=== PATIENT | male | born 1995 | race Caucasian/White ===

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

== ENCOUNTER 2021-07-05 15:10 | Emergency (ER) | payer BC ==
[2021-07-05 16:44] VITALS: TEMP 98.6
[2021-07-05] MEDS ORDERED: HALOPERIDOL LACTATE 5 MG/ML 1 ML VIAL IVP STA (18:01)
[2021-07-05] MEDS ORDERED: diphenhydrAMINE 50 MG/ML 1 ML VIAL IVP STA (18:01)
[2021-07-05] MEDS ORDERED: FAMOTIDINE 20 MG/2 ML VIAL IV STA (18:02)
[2021-07-05] MEDS ORDERED: DEXTROSE 5%-0.9% NACL 1,000 ML IV SCH (18:15)
[2021-07-05 18:38] LABS: Basophils % (A) 0 %; Eosinophils % (A) 0 %; Lymphocytes % (A) 26 %; MCH 30.5 pg (25.0-35.0); MCHC 34.7 g/dL (31.0-37.0); MCV 87.9 fL (80.0-100.0); Mean Platelet Volume 7.6; Monocytes # (A) 0.8 k/uL (0-1.0); Monocytes % (A) 7 %; Neutrophils # (A) 7.3 k/uL (1.3-7.7); Neutrophils % (A) 64 %; Platelet Count 258 k/uL (150-450); RBC 5.58 m/uL (4.30-5.90); RDW 11.6 % (11.5-15.5); WBC 11.5 k/uL (3.8-10.6)
[2021-07-05 18:49] LABS: Appearance,Urine Cloudy (Clear); Bilirubin,Urine Negative (Negative); Blood,Urine Large (Negative); Color,Urine Yellow; Glucose,Urine (UA) Negative (Negative); Ketones,Urine 3+ (Negative); Leukocyte Esterase,Urine Negative (Negative); Mucus,Urine Many /hpf; Nitrite,Urine Negative (Negative); PH, Urine 6.5 (5.0-8.0); Protein,Urine 4+ (Negative); RBC,Urine 9 /hpf (0-5); Specific Gravity,Urine 1.042 (1.001-1.035); Squamous Epithelial Cell,Urine 3 /hpf (0-4); Urobilinogen,Urine <2.0 mg/dL (<2.0); WBC,Urine 3 /hpf (0-5)
[2021-07-05 18:50] LABS: ALT 175 U/L (4-49); African American GFR (CKD) >90 (>60 ml/min/1.73 sqM); Albumin 5.2 g/dL (3.5-5.0); Alkaline Phosphatase 70 U/L (38-126); Amylase 77 U/L (30-110); Anion Gap 14 mmol/L; Blood Urea Nitrogen 20 mg/dL (9-20); Calcium 9.9 mg/dL (8.4-10.2); Carbon Dioxide 25 mmol/L (22-30); Chloride 100 mmol/L (98-107); Glucose 94 mg/dL (74-99); Lipase 111 U/L (23-300); Non-African American GFR(CKD) >90 (>60 ml/min/1.73 sqM); Potassium 3.9 mmol/L (3.5-5.1); Sodium 139 mmol/L (137-145); Total Bilirubin 1.4 mg/dL (0.2-1.3); Total Protein 8.4 g/dL (6.3-8.2)
[2021-07-05 19:06] LABS: AST 933 U/L (17-59)
--- NOTE | 2021-07-05 19:55 | ED ---
General Adult HPI - General Chief complaint: Nausea/Vomiting/Diarrhea Stated complaint: abd pain Time Seen by Provider: 07/05/21 17:42 Source: patient, RN notes reviewed, old records reviewed Mode of arrival: ambulatory Limitations: no limitations - History of Present Illness Initial comments: Patient patient is a 25-year-old male with past medical history remarkable for marijuana hyperemesis syndrome, as well as an extensive hepatobiliary workup due to chronic nausea and vomiting presents emergency Department complaining of a four-day history of nausea and vomiting. He was diagnosed with hyperemesis syndrome on Sunday. Has been having multiple episodes of nonbilious, bloody emesis since. States she can only tolerate small amounts of water. Began feeling worse again today. Does endorse some mild epigastric discomfort in addition to nausea and vomiting. States he has had extensive workups previously, including a HIDA scan to evaluate for obstruction which have been negative in the past. He presents today over concern for worsening nausea or vomiting. He states he has not smoked marijuana since Sunday. Denies any fevers, chills, sick contacts, chest pain, shortness of breath.Evaluated the patient was placed in a room. - Related Data Home Medications Medication Instructions Recorded Confirmed Omeprazole Magnesium [PriLOSEC OTC] 20 mg PO DAILY PRN 07/05/21 07/05/21 Previous Rx's Medication Instructions Recorded Ondansetron Odt [Zofran Odt] 4 mg PO Q8HR PRN 3 Days #9 tab 07/05/21 Allergies Allergy/AdvReac Type Severity Reaction Status Date / Time No Known Allergies Allergy Verified 07/05/21 20:03 Review of Systems ROS Statement: Those systems with pertinent positive or pertinent negative responses have been documented in the HPI. Review of Systems: CONST: Denies fever EYES: Denies blurry vision ENT: Denies nasal congestion C/V: Denies Chest pain RESP: Denies shortness of breath GI: Endorses abdominal pain. : Denies dysuria SKIN: Denies rash. MSK: Denies joint pain. NEURO: Denies headache ROS Other: All systems not noted in ROS Statement are negative. Past Medical History Past Medical History: Asthma History of Any Multi-Drug Resistant Organisms: None Reported Past Surgical History: No Surgical Hx Reported Additional Past Surgical History / Comment(s): facial reconstruction surgery Past Psychological History: No Psychological Hx Reported Smoking Status: Never smoker Past Alcohol Use History: None Reported Past Drug Use History: None Reported General Exam - General Exam Comments Initial Comments: General: Appears in no acute distress. HEAD: Normal with no signs of head trauma. EYES: PERRLA, EOMI, conjunctiva normal, no discharge. ENT: Hearing grossly intact, normal oropharynx. RESPIRATORY: Clear breath sounds bilaterally. No wheezes, rales, or rhonchi. C/V: Regular rate and rhythm. S1 and S2 auscultated, no edema, peripheral pulses 2+ and intact throughout ABD: Abdomen is soft, nondistended. Patient does have mild tenderness to palpation in the epigastric region. No rebound tenderness, and no peritoneal signs, no guarding. EXT: Normal range of motion, no obvious deformity SKIN: No rashes or lesions observed on exposed skin. NEURO: Alert and oriented 4. Limitations: no limitations Course Vital Signs 07/05/21 07/05/21 16:38 20:08 Temperature 98.6 F Pulse Rate 98 64 Respiratory 18 16 Rate Blood Pressure 131/90 124/68 O2 Sat by Pulse 99 97 Oximetry Medical Decision Making - Medical Decision Making Based on the patient's presentation and physical exam, I'm concerned for acute intra-abdominal process for his current symptoms. Is likely marijuana hyperemesis syndrome. We will obtain abdominal laboratory studies, as well as a screening EKG. He was in agreement this plan. I do not think that require imaging at this time. He'll be symptomatically treated with IV Haldol, Benadryl, famotidine 1 L fluid bolus. Patient was in agreement this plan. Patient's EKG shows no signs of acute ischemia. Laboratory studies are remarkable for mild leukocytosis of 11.5. Patient does have an elevated bilirubin of 1.4, as well as elevated AST and ALT respectively of 933 and 175. Alk phos is normal. Urinalysis is remarkable for 4+ protein as well as 3+ ketones and large amount of blood. No signs of acute infection. On reevaluation, patient is feeling improved. I would like to admit him to the hospital for further evaluation over concern for possible hepatitis. He declines. He would like to go home as he feels better. I informed him this would be AGAINST MEDICAL ADVICE and he was in agreement. The patient was apprised of the potential risks of leaving the hospital AGAINST MEDICAL ADVICE, including serious complications, permanent disability, and . At the time of my interview the patient, the patient was alert, oriented, and capable. Patient signed AMA form, which was witnessed and signed by nursing staff, and placed in patient's chart. I urged the patient to return to the hospital as soon as possible to complete evaluation and treatment. Patient was given his prescriptions and discharged AGAINST MEDICAL ADVICE. I advised him to return to the emergency department with any worsening symptoms and advised that he seek medical care due to concern for his liver function. - Lab Data Result diagrams: 07/05/21 18:24 07/05/21 18:24 Lab Results 07/05/21 07/05/21 07/05/21 Range/Units 18:24 18:24 18:43 WBC 11.5 H (3.8-10.6) k/uL RBC 5.58 (4.30-5.90) m/uL Hgb 17.0 (13.0-17.5) gm/dL Hct 49.0 (39.0-53.0) % MCV 87.9 (80.0-100.0) fL MCH 30.5 (25.0-35.0) pg MCHC 34.7 (31.0-37.0) g/dL RDW 11.6 (11.5-15.5) % Plt Count 258 (150-450) k/uL MPV 7.6 Neutrophils % 64 % Lymphocytes % 26 % Monocytes % 7 % Eosinophils % 0 % Basophils % 0 % Neutrophils # 7.3 (1.3-7.7) k/uL Lymphocytes # 3.0 (1.0-4.8) k/uL Monocytes # 0.8 (0-1.0) k/uL Eosinophils # 0.0 (0-0.7) k/uL Basophils # 0.0 (0-0.2) k/uL Sodium 139 (137-145) mmol/L Potassium 3.9 (3.5-5.1) mmol/L Chloride 100 (98-107) mmol/L Carbon Dioxide 25 (22-30) mmol/L Anion Gap 14 mmol/L BUN 20 (9-20) mg/dL Creatinine 0.82 (0.66-1.25) mg/dL Est GFR (CKD-EPI)AfAm >90 (>60 ml/min/1.73 sqM) Est GFR (CKD-EPI)NonAf >90 (>60 ml/min/1.73 sqM) Glucose 94 (74-99) mg/dL Calcium 9.9 (8.4-10.2) mg/dL Total Bilirubin 1.4 H (0.2-1.3) mg/dL AST 933 H (17-59) U/L ALT 175 H (4-49) U/L Alkaline Phosphatase 70 (38-126) U/L Total Protein 8.4 H (6.3-8.2) g/dL Albumin 5.2 H (3.5-5.0) g/dL Amylase 77 (30-110) U/L Lipase 111 (23-300) U/L Urine Color Yellow Urine Appearance Cloudy (Clear) Urine pH 6.5 (5.0-8.0) Ur Specific [place] 1.042 H (1.001-1.035) Urine Protein 4+ H (Negative) Urine Glucose (UA) Negative (Negative) Urine Ketones 3+ H (Negative) Urine Blood Large H (Negative) Urine Nitrite Negative (Negative) Urine Bilirubin Negative (Negative) Urine Urobilinogen <2.0 (<2.0) mg/dL Ur Leukocyte Esterase Negative (Negative) Urine RBC 9 H (0-5) /hpf Urine WBC 3 (0-5) /hpf Ur Squamous Epith Cells 3 (0-4) /hpf Urine Mucus Many H (None) /hpf - EKG Data -: EKG Interpreted by Me EKG Comments: 12-lead Electrocardiogram Interpretation Note EKG was reviewed and interpreted by myself. 12-lead ECG performed at 1910 is interpreted by me as revealing normal sinus rhythm at a rate of 78 beats per minute. Right axis deviation. GA Intervals 156 seconds, QRS duration is 100 ms, QTc is 503 ms.. There were no ST or T wave abnormalities to suggest myocardial ischemia or injury. R wave progression across the precordium was satisfactory. By my interpretation this EKG is non-diagnostic for acute ischemia. There is baseline artifact in the anterior precordial leads which makes interpretation difficult. Disposition Clinical Impression: Nausea and vomiting, Hepatitis, Dehydration, Left against medical advice, Hematuria Disposition: Left Against Medical Advice Instructions (If sedation given, give patient instructions): Acute Nausea and Vomiting (ED) Additional Instructions: concern for hepatitis due to elevated liver enzymes. Please return and seek care if worsening symptoms and follow up with your PCP. Prescriptions: Ondansetron Odt [Zofran Odt] 4 mg PO Q8HR PRN 3 Days #9 tab PRN Reason: Nausea Is patient prescribed a controlled substance at d/c from ED?: No Referrals: Nonstaff,Physician [Primary Care Provider] - 1-2 days Sushma Whitmore MD [STAFF PHYSICIAN] - 1-2 days
[2021-07-05 20:10] VITALS: BP 124/68; PULSE 64; RESP 16
== END 2021-07-05 20:09 | disposition left against medical advice (07) ==
LOC: EC 15:10
DX: K75.9 Inflammatory liver disease, unspecified (principal); E86.0 Dehydration; R31.9 Hematuria, unspecified; J45.909 Unspecified asthma, uncomplicated
CPT/HCPCS: 36415; 93005; 80053; 82150; 83690; 85025; 81001; 99284; 96374; 96375 ×2; J1200; J1630

== ENCOUNTER 2021-07-06 15:54 | Emergency (ER) | payer BC ==
[2021-07-06 16:12] VITALS: RESP 18
[2021-07-06] MEDS ORDERED: SODIUM CHLORIDE 0.9% 1,000 ML IV STA (17:11)
[2021-07-06 17:21] LABS: ALT 172 U/L (4-49); African American GFR (CKD) >90 (>60 ml/min/1.73 sqM); Alkaline Phosphatase 68 U/L (38-126); Anion Gap 16 mmol/L; Blood Urea Nitrogen 17 mg/dL (9-20); Calcium 9.6 mg/dL (8.4-10.2); Carbon Dioxide 21 mmol/L (22-30); Chloride 100 mmol/L (98-107); Glucose 100 mg/dL (74-99); Magnesium 2.1 mg/dL (1.6-2.3); Non-African American GFR(CKD) >90 (>60 ml/min/1.73 sqM); Potassium 3.4 mmol/L (3.5-5.1); Sodium 137 mmol/L (137-145); Total Bilirubin 1.4 mg/dL (0.2-1.3); Total Protein 7.9 g/dL (6.3-8.2)
[2021-07-06 17:25] LABS: Basophils % (A) 0 %; Eosinophils % (A) 0 %; HCT 47.3 % (39.0-53.0); HGB 16.7 gm/dL (13.0-17.5); Lymphocytes # (A) 1.4 k/uL (1.0-4.8); Lymphocytes % (A) 16 %; MCH 31.2 pg (25.0-35.0); MCHC 35.3 g/dL (31.0-37.0); MCV 88.2 fL (80.0-100.0); Mean Platelet Volume 7.5; Monocytes # (A) 0.5 k/uL (0-1.0); Monocytes % (A) 5 %; Neutrophils # (A) 6.9 k/uL (1.3-7.7); Neutrophils % (A) 76 %; Platelet Count 279 k/uL (150-450); RBC 5.36 m/uL (4.30-5.90); RDW 12.1 % (11.5-15.5); WBC 9.1 k/uL (3.8-10.6)
[2021-07-06 17:28] LABS: INR 1.1 (<1.2); Partial Thromboplastin Time 23.9 sec (22.0-30.0); Prothrombin Time 11.1 sec (9.0-12.0)
[2021-07-06 17:30] LABS: AST 791 U/L (17-59)
[2021-07-06] MEDS ORDERED: ONDANSETRON 4 MG/2 ML VIAL IVP STA (17:47)
--- NOTE | 2021-07-06 17:49 | ED ---
General Adult HPI - General Chief complaint: Nausea/Vomiting/Diarrhea Stated complaint: revisit - nausea, vomiting Time Seen by Provider: 07/06/21 17:05 Source: patient, RN notes reviewed Mode of arrival: ambulatory Limitations: no limitations - History of Present Illness Initial comments: 25-year-old male with a past medical history of asthma, hyperemesis syndrome presents to the emergency room for a chief complaint of nausea vomiting. Patient reports that he has had nausea and vomiting since Sunday. He has been seen at multiple facilities and had haldol multiple times since then. Patient had high liver enzymes yesterday and left AGAINST MEDICAL ADVICE. However his symptoms came back and now he feels worse again. Patient states his symptoms are due to smoking marijuana. States he has had an endoscopy about a year ago as well showing a stomach ulcer. States his gallbladder was evaluated and was found to be normal. Patient states he gets these episodes every couple months.Patient has no other complaints at this time including shortness of breath, chest pain, headache, or visual changes. - Related Data Home Medications Medication Instructions Recorded Confirmed Omeprazole Magnesium [PriLOSEC OTC] 20 mg PO DAILY PRN 07/05/21 07/06/21 Previous Rx's Medication Instructions Recorded Ondansetron Odt [Zofran Odt] 4 mg PO Q8HR PRN 3 Days #9 tab 07/05/21 Ondansetron [Zofran ODT] 4 mg PO Q8HR PRN #15 tab 07/06/21 Allergies Allergy/AdvReac Type Severity Reaction Status Date / Time No Known Allergies Allergy Verified 07/06/21 18:21 Review of Systems ROS Statement: Those systems with pertinent positive or pertinent negative responses have been documented in the HPI. ROS Other: All systems not noted in ROS Statement are negative. Past Medical History Past Medical History: Asthma History of Any Multi-Drug Resistant Organisms: None Reported Past Surgical History: No Surgical Hx Reported Additional Past Surgical History / Comment(s): facial reconstruction surgery Past Psychological History: No Psychological Hx Reported Smoking Status: Never smoker Past Alcohol Use History: None Reported Past Drug Use History: None Reported General Exam Limitations: no limitations General appearance: alert, in no apparent distress Head exam: Present: atraumatic Eye exam: Present: normal appearance, PERRL, EOMI. Absent: scleral icterus, conjunctival injection ENT exam: Present: normal exam, mucous membranes moist Neck exam: Present: normal inspection, full ROM. Absent: tenderness Respiratory exam: Present: normal lung sounds bilaterally. Absent: respiratory distress, wheezes Cardiovascular Exam: Present: regular rate, normal rhythm GI/Abdominal exam: Present: soft, normal bowel sounds. Absent: distended, tenderness Neurological exam: Present: alert Course Vital Signs 07/06/21 07/06/21 16:08 19:18 Temperature 98.2 F 98 F Pulse Rate 67 80 Respiratory 18 18 Rate Blood Pressure 136/86 132/78 O2 Sat by Pulse 99 100 Oximetry Medical Decision Making - Medical Decision Making vitals are stable. Patient well-appearing. He has not had any episodes of vomiting. CBC is unremarkable. His CMP does show transaminitis however it is improving compared to yesterday. Gallbladder ultrasound shows no gallstones or dilated ducts. At this time patient is stable for outpatient follow-up as his liver enzymes are improving however he needs these repeated within the week. Symptoms are worsening he will return to the emergency room. He does have a [facility] doctor or Dr. Baltazar that he can follow-up with. - Lab Data Result diagrams: 07/06/21 16:50 07/06/21 16:50 Lab Results 07/06/21 07/06/21 07/06/21 Range/Units 16:13 16:50 16:50 WBC 9.1 (3.8-10.6) k/uL RBC 5.36 (4.30-5.90) m/uL Hgb 16.7 (13.0-17.5) gm/dL Hct 47.3 (39.0-53.0) % MCV 88.2 (80.0-100.0) fL MCH 31.2 (25.0-35.0) pg MCHC 35.3 (31.0-37.0) g/dL RDW 12.1 (11.5-15.5) % Plt Count 279 (150-450) k/uL MPV 7.5 Neutrophils % 76 % Lymphocytes % 16 % Monocytes % 5 % Eosinophils % 0 % Basophils % 0 % Neutrophils # 6.9 (1.3-7.7) k/uL Lymphocytes # 1.4 (1.0-4.8) k/uL Monocytes # 0.5 (0-1.0) k/uL Eosinophils # 0.0 (0-0.7) k/uL Basophils # 0.0 (0-0.2) k/uL PT 11.1 (9.0-12.0) sec INR 1.1 (<1.2) APTT 23.9 (22.0-30.0) sec Sodium (137-145) mmol/L Potassium (3.5-5.1) mmol/L Chloride (98-107) mmol/L Carbon Dioxide (22-30) mmol/L Anion Gap mmol/L BUN (9-20) mg/dL Creatinine (0.66-1.25) mg/dL Est GFR (CKD-EPI)AfAm (>60 ml/min/1.73 sqM) Est GFR (CKD-EPI)NonAf (>60 ml/min/1.73 sqM) Glucose (74-99) mg/dL Calcium (8.4-10.2) mg/dL Magnesium (1.6-2.3) mg/dL Total Bilirubin (0.2-1.3) mg/dL AST (17-59) U/L ALT (4-49) U/L Alkaline Phosphatase (38-126) U/L Total Protein (6.3-8.2) g/dL Albumin (3.5-5.0) g/dL Coronavirus (PCR) Not Detected (Not Detectd) 07/06/21 Range/Units 16:50 WBC (3.8-10.6) k/uL RBC (4.30-5.90) m/uL Hgb (13.0-17.5) gm/dL Hct (39.0-53.0) % MCV (80.0-100.0) fL MCH (25.0-35.0) pg MCHC (31.0-37.0) g/dL RDW (11.5-15.5) % Plt Count (150-450) k/uL MPV Neutrophils % % Lymphocytes % % Monocytes % % Eosinophils % % Basophils % % Neutrophils # (1.3-7.7) k/uL Lymphocytes # (1.0-4.8) k/uL Monocytes # (0-1.0) k/uL Eosinophils # (0-0.7) k/uL Basophils # (0-0.2) k/uL PT (9.0-12.0) sec INR (<1.2) APTT (22.0-30.0) sec Sodium 137 (137-145) mmol/L Potassium 3.4 L (3.5-5.1) mmol/L Chloride 100 (98-107) mmol/L Carbon Dioxide 21 L (22-30) mmol/L Anion Gap 16 mmol/L BUN 17 (9-20) mg/dL Creatinine 0.80 (0.66-1.25) mg/dL Est GFR (CKD-EPI)AfAm >90 (>60 ml/min/1.73 sqM) Est GFR (CKD-EPI)NonAf >90 (>60 ml/min/1.73 sqM) Glucose 100 H (74-99) mg/dL Calcium 9.6 (8.4-10.2) mg/dL Magnesium 2.1 (1.6-2.3) mg/dL Total Bilirubin 1.4 H (0.2-1.3) mg/dL AST 791 H (17-59) U/L ALT 172 H (4-49) U/L Alkaline Phosphatase 68 (38-126) U/L Total Protein 7.9 (6.3-8.2) g/dL Albumin 5.0 (3.5-5.0) g/dL Coronavirus (PCR) (Not Detectd) Disposition Clinical Impression: Transaminitis, Nausea and vomiting Disposition: HOME SELF-CARE Condition: Good Instructions (If sedation given, give patient instructions): Acute Nausea and Vomiting (ED) Additional Instructions: Please have your liver enzymes repeated within the week. Drink plenty of fluids. Refrain from smoking marijuana as this could be the cause of your symptoms. Return to the emergency room for any worsening symptoms. Prescriptions: Ondansetron [Zofran ODT] 4 mg PO Q8HR PRN #15 tab PRN Reason: Nausea Is patient prescribed a controlled substance at d/c from ED?: No Referrals: Nonstaff,Physician [Primary Care Provider] - 1-2 days Florecita Baltazar MD [STAFF PHYSICIAN] - 1-2 days Sushma Whitmore MD [STAFF PHYSICIAN] - 1-2 days Time of Disposition: 19:21
[2021-07-06] MEDS ORDERED: KETOROLAC 15 MG/ML 1 ML VIAL IVP STA (18:08)
--- NOTE | 2021-07-06 18:39 | US ---
EXAMINATION TYPE: US gallbladder DATE OF EXAM: 07/06/2021 COMPARISON: NONE CLINICAL HISTORY: hepatitis. Hepatitis. EXAM MEASUREMENTS: Liver Length: 15.2 cm Gallbladder Wall: 0.18 cm CBD: 0.22 cm Right Kidney: 10.8 x 4.8 x 4.9 cm Pancreas: Slightly limited due to gas. Liver: Appears coarse in echotexture. Gallbladder: Measures 8.8 cm in length. Fold seen near neck. Appears to be anechoic. Evidence for sonographic Bay's sign: No. CBD: Portions seen appear wnl. Right Kidney: No hydronephrosis or masses seen IMPRESSION: No focal liver defect. No gallstones or dilated ducts.
[2021-07-06 19:19] VITALS: BP 132/78; PULSE 80; TEMP 98
[2021-07-07 01:17] LABS: Hepatitis A Antibody IgM Nonreactive (Nonreactive); Hepatitis B Core IgM Nonreactive (Nonreactive); Hepatitis B Surface Antigen Nonreactive (Nonreactive); Hepatitis C IgG Antibody Nonreactive (Nonreactive)
== END 2021-07-06 19:35 | disposition home or self-care (01) ==
LOC: EC 15:54
DX: R74.01 Elevation of levels of liver transaminase levels (principal); R11.2 Nausea with vomiting, unspecified; J45.909 Unspecified asthma, uncomplicated; Z20.822 Contact with and (suspected) exposure to COVID-19
CPT/HCPCS: 36415; 80053; 80074; 83735; 85025; 85610; 85730; 87635; 76705; 99284; 96374; 96375; 96361; J2405; J1885